=== PATIENT | female | born 1955 | race Caucasian/White ===

== ENCOUNTER → 2019-01-11 16:23 | Outpatient (CLI) | payer OTHER, SELFPAY ==
--- NOTE | 2019-01-11 | LES_PTH ---
PATIENT: CIARA BERGERON LOC: [facility] U#:[id number] AGE/SX: 70/F ROOM: RE01/11/[address]: Dr. Trev Chavez MD : [id number] BED: DIS: SPEC #: [id number] RECD: 01/11/19 08:17 STATUS: NEETA GLADYS #: [id number] MONI: 01/11/19 00:[address]: Trev Chavez DEPT: SURGICAL PATHOLOGY RECD BY: Pernell Bryant ENTERED: 01/12/19 08:17 SP TYPE: Lesion OTHR DR: No Primary Care Phys Tissues: Skin of eyelid, NOS Procedures: Surgery Specimen Level IV HEADER OPERATION: Excision of LLL lesion PRE-OP DIAGNOSIS: Increased size lesion LLL TISSUE SUBMITTED: LLL lesion MICROSCOPIC DIAGNOSIS LLL lesion, excision: Squamous papilloma. SHANNAN:holden 01/13/19 MICROSCOPIC DESCRIPTION Slides are reviewed. GROSS DESCRIPTION Received in fixative is one container labeled with the patient's name and designated left lower lid. The specimen consists of a polypoid piece of hill-white skin measuring 0.5 x 0.5 x 0.3 cm. The specimen is inked, bisected and submitted entirely in one cassette. / SJ:holden 01/12/19 TC:1 CPT: 96475
== END ==
PROVIDERS: Referring Provider Ophthalmology; Visit Provider Ophthalmology
DX: D23.122 Other benign neoplasm of skin of left lower eyelid, including canthus (principal)
CPT/HCPCS: 88305